=== PATIENT | male | born 1995 | race Caucasian/White ===

== ENCOUNTER 2016-08-15 03:20 | Emergency (ER) | payer BC ==
[~2016-08-15] VITALS: Ht 193 cm; Wt 179.6 kg
[~2016-08-15 03:20] MED LIST: FLUO20CA35 PO; LORA-741 PO
[2016-08-15 03:31] VITALS: TEMP 36.4; Ht 193 cm; Wt 179.6 kg
[2016-08-15] MEDS ORDERED: NORCO 5/325MG HOME PACK PO ONE (05:30)
[2016-08-15] MEDS ORDERED: CLON0.5T3 PO (05:34)
[2016-08-15] MEDS ORDERED: BUSP15TA70 PO (05:34)
[2016-08-15] MEDS ORDERED: PRX/40 PO (05:34)
[2016-08-15] MEDS ORDERED: CHOL1CAP95 PO (05:34)
[2016-08-15] MEDS ORDERED: PARO10TA PO (05:34)
[2016-08-15] MEDS ORDERED: HYDR-5688 PO (05:36)
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
[2016-08-15 06:14] VITALS: BP 148/90; PULSE 105; O2SAT 95
--- NOTE | 2016-08-15 07:50 | DIAGNOSTIC IMAGING REPORT ---
RIGHT ANKLE MIN 3 VIEWS ROUTINE CLINICAL HISTORY: Right ankle pain status post trauma COMPARISON: None DISCUSSION: There is an oblique/spiral fracture of the distal fibula. No tibial fractures are visualized. The ankle mortise appears intact. There is bimalleolar soft tissue swelling. IMPRESSION: Acute distal fibular fracture. The ankle mortise appears intact on these nonstress views. Electronically signed by: Enrike Dumont M.D. 08/15/2016 7:49 AM Dictated Date/Time: 08/15/2016 7:46 AM
[2016-08-20] MEDS ORDERED: HYDR-5688 PO (08:47)
[2016-08-21] MEDS ORDERED: IBUP-103 PO (12:24)
[2016-08-21] MEDS ORDERED: HYDR-5688 PO (15:17)
== END 2016-08-15 06:25 | disposition home or self-care (01) ==
LOC: C.EDB 03:21 → C.EDC 06:25
DX: S82.401A Unspecified fracture of shaft of right fibula, initial encounter for closed fracture (principal); W17.89XA Other fall from one level to another, initial encounter; Y93.39 Activity, other involving climbing, rappelling and jumping off

== ENCOUNTER → 2016-08-19 | Outpatient (CLI) | payer BC ==
[~2016-08-19] MED LIST changes: +BUSP15TA70 PO; +CHOL1CAP95 PO; +CLON0.5T3 PO; -FLUO20CA35 PO; +HYDR-5688 PO; +IBUP-103 PO; -LORA-741 PO; +PARO10TA PO; +PRX/40 PO
[2016-08-19 13:24] LABS: BASO % 0.5 %; BASO ABS # 0.04 K/uL (0-0.2); COMPLETE YES; EOS % 4.5 %; HEMATOCRIT 43.3 % (42-52); IG% 0.1 %; LYMPH % 24.5 %; LYMPH ABS # 2.02 K/uL (1.2-3.4); MEAN CELL VOLUME 87.5 fL (80-100); MEAN CORPUSCULAR HEMOGLOBIN 29.7 pg (25-34); MEAN CORPUSCULAR HGB CONC 33.9 g/dl (32-36); MEAN PLATELET VOLUME 10.9 fL (7.4-10.4); MONO % 9.8 %; NEUT % 60.6 %; PLATELET COUNT 256 K/uL (130-400); RED BLOOD COUNT 4.95 M/uL (4.7-6.1); WHITE BLOOD COUNT 8.24 K/uL (4.8-10.8)
[2016-08-19 13:46] LABS: BLOOD UREA NITROGEN 7 mg/dl (7-18); BUN/CREATININE RATIO 7.5 (10-20); CARBON DIOXIDE 30 mmol/L (21-32); CHLORIDE 103 mmol/L (98-107); CREATININE 0.97 mg/dl (0.60-1.40); GLUCOSE 89 mg/dl (70-99); POTASSIUM 3.6 mmol/L (3.5-5.1); SODIUM 140 mmol/L (136-145)
== END | disposition home or self-care (01) ==
LOC: C.LABBC 10:10
PROVIDERS: ATTEND Orthopaedic Surgery
DX: S82.61XA Displaced fracture of lateral malleolus of right fibula, initial encounter for closed fracture (principal); X58.XXXA Exposure to other specified factors, initial encounter

== ENCOUNTER → 2016-08-21 | Day surgery (SDC) | payer BC ==
[2016-08-20 08:47] VITALS: BMI 45.0
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
[~2016-08-21] VITALS: Ht 195.6 cm; Wt 172.7 kg
[~2016-08-21] MED LIST changes: +ACETAMINOPHEN 500 MG TAB PO SCH; +ATROPINE SULFATE 0.1 MG/ML 5ML SYR IV PRN; +BACITRACIN 50000 UNIT VIAL ONE; +BUPIVACAINE/EPINEPHRINE 0.5% MPF 1:200,000 30 ML VIAL ONE; +CEFAZOLIN 3000 MG/65 ML D5W 65 ML IV SCH; +DEXAMETHASONE SOD INJ 4 MG/ML VIAL ONE; +FENTANYL CITRATE INJ 50 MCG/1 ML 2 ML VIAL ONE; +GLYCOPYRROLATE INJ 0.2 MG/ML VIAL ONE; +HYDROCODONE/ACETAMOPHEN 5/325MG TAB PO PRN; +HYDROmorphone INJ 2 MG/ML SYR/VIAL IV PRN; +HYDROmorphone INJ 2 MG/ML SYR/VIAL ONE; +KETOROLAC TROMETHAMINE 30 MG/ML VIAL IV. PRN; +KETOROLAC TROMETHAMINE 30 MG/ML VIAL ONE; +LACTATED RINGER'S 1000ML IV SCH; +LIDOCAINE HCL 2% 2 ML VIAL (20MG/ML) ONE; +MIDAZOLAM HCL 1 MG/ML 2ML VIAL ONE; +NEOSTIGMINE METHYLSULFATE 5 MG/5 ML SYR ONE; +ONDANSETRON INJ 2 MG/ML 2 ML VIAL IV PRN; +ONDANSETRON INJ 2 MG/ML 2 ML VIAL ONE; +PROMETHAZINE HCL INJ 12.5 MG in SODIUM CHLORIDE 0.9% 50ML 50 ML IV PRN; +PROPOFOL IV EMULSION 10 MG/ML 20 ML VIAL IV ONE; +ROCURONIUM BROMIDE 10 MG/ML 5 ML VIAL ONE; +ROPIVACAINE 0.5% 5 MG/ML 30 ML VIAL ONE; +SODIUM CHLORIDE 0.9% 1000ML 1,000 ML IV SCH
--- NOTE | 2016-08-21 12:04 | History & Physical Bridge Note ---
H&P Re-Evaluation Bridge Note: I have examined the patient, reviewed the History & Physical and in the interval since the performance of the History & Physical I have noted the following changes of clinical significance: No changes noted
[2016-08-21 12:26] VITALS: BP 162/95; PULSE 93; TEMP 36.7; O2SAT 97; Ht 195.6 cm; Wt 172.7 kg
--- NOTE | 2016-08-21 15:08 | DIAGNOSTIC IMAGING REPORT ---
INTRAOPERATIVE RIGHT ANKLE 4 VIEWS CLINICAL HISTORY: Distal fibular fracture. COMPARISON STUDY: 08/15/2016 FINDINGS: 4 intraoperative fluoroscopic spot images are provided for interpretation. 15 seconds of fluoroscopic time was utilized. There is been internal fixation of the distal fibular fracture with a lateral metallic plate fixated with 8 screws. There is additional orthogonal screw traversing the fracture. Appears near-anatomic on the provided images. The ankle mortise appears intact. IMPRESSION: Interval internal fixation of the previously identified distal fibular fracture Electronically signed by: Enrike Dumont M.D. 08/21/2016 3:07 PM Dictated Date/Time: 08/21/2016 3:06 PM
--- NOTE | 2016-08-21 15:19 | Discharge Instructions ---
Discharge Instructions Admission Reason for Admission: Closed Fracture of Right Lateral Malleolus Discharge Discharge Diagnosis / Problem: SAME ABOVE Discharge Goals Goal(s): Decrease discomfort, Improve function Activity Recommendations Activity Limitations: as noted below Lifting Limitations: until after follow-up appointment Exercise/Sports Limitations: until after follow-up appointment Shower/Bathe: keep incision dry Driving or Machine Use: Weightbearing Status: Right non-weightbearing . Instructions / Follow-Up Instructions / Follow-Up MEDICATIONS: * Resume previous medications unless instructed otherwise by your surgeon. * Always take pain medication on a full stomach or with food to avoid upset stomach. * Do not drink alcohol or drive while taking narcotics. * Ibuprofen or Tylenol may be taken if narcotic not needed. SPECIAL CARE INSTRUCTIONS: __ None _X_ Keep extremity elevated and iced x 48 hours; apply ice 20-30 minutes 8-10 times/day. May remove at night. _X_ Crutches __ May discard when able __ Brace/Post-op shoe __ 24 hrs/day __ Remove at night _X_ Dressing _X_ Maintain until seen in office, may shower with plastic over site __ Remove dressings in 24-48 hours and then may shower __ Cover incisions with band-aids after showering __ Do not remove steri-strips Call physician if chills or temperature rises above 102 degrees or pain unrelieved by prescribed pain medications. Office [phone] Current Hospital Diet Patient's current hospital diet: Discharge Diet Recommended Diet: Regular Diet Fluid Restriction: None Procedures Procedures Performed: Right Distal Fibula Fracture Open Reduction Internal Fixation Pending Studies Studies pending at discharge: no Work Instructions Return To Work: after follow-up School Instructions Return To School: after follow-up Medical Emergencies . Who to Call and When: Medical Emergencies: If at any time you feel your situation is an emergency, please call 911 immediately. . Non-Emergent Contact Non-Emergency issues call your: Primary Care Provider Call Non-Emergent contact if: you have a fever, temperature is above 101.5 . "Provider Documentation" section prepared by Paul Natarajan. VTE Core Measure Inpt VTE Proph given/why not?: Treatment not indicated
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
--- NOTE | 2016-08-21 15:55 | [facility] Post Operative Brief Note ---
Immediate Operative Summary Operative Date Aug 21, 2016. Pre-Operative Diagnosis Right distal Fibula Fracture Post-Operative Diagnosis Right distal Fibula Fracture Procedure(s) Performed Right Distal Fibula Fracture Open Reduction Internal Fixation Surgeon Dr. Brody Morin Vision Specialist Surgeon(s) Paul Natarajan PA-C Estimated Blood Loss 50ML Findings as above Specimens none per surgeon Dr. Brody Morin Complication(s) None Disposition Recovery Room / PACU
--- NOTE | 2016-08-21 15:55 | Anesthesiology Progress Note ---
Anesthesia Post Op Note Date & Time Aug 21, 2016 at 15:55 Vital Signs Pain Intensity: 0 Vital Signs Past 12 Hours Date Time Temp Pulse Resp B/P Pulse Ox O2 Delivery O2 Flow Rate FiO2 08/21/16 15:19 36.5 85 16 142/65 96 Mask 10 08/21/16 12:26 36.7 93 20 162/95 97 Room Air Notes Mental Status: alert / awake / arousable, participated in evaluation Pt Amnestic to Procedure: Yes Nausea / Vomiting: adequately controlled Pain: adequately controlled Airway Patency, RR, SpO2: stable & adequate BP & HR: stable & adequate Hydration State: stable & adequate Anesthetic Complications: no major complications apparent
[2016-08-21 16:10] VITALS: BP 121/58; PULSE 86; TEMP 36.9; O2SAT 91
[2016-08-21 16:44] VITALS: BP 127/65; PULSE 82; O2SAT 93
[2016-08-21 17:09] VITALS: BP 120/56; PULSE 83; TEMP 36.7; O2SAT 96
== END | disposition home or self-care (01) ==
LOC: C.ACU 11:50
PROVIDERS: ATTEND Orthopaedic Surgery
DX: S82.401A Unspecified fracture of shaft of right fibula, initial encounter for closed fracture (principal); W13.8XXA Fall from, out of or through other building or structure, initial encounter; I10 Essential (primary) hypertension; F41.9 Anxiety disorder, unspecified; Z98.890 Other specified postprocedural states; Y93.89 Activity, other specified; Y92.89 Other specified places as the place of occurrence of the external cause; Y99.8 Other external cause status

== ENCOUNTER → 2016-12-17 | Outpatient (CLI) | payer BC ==
[~2016-12-17] MED LIST changes: -ACETAMINOPHEN 500 MG TAB PO SCH; -ATROPINE SULFATE 0.1 MG/ML 5ML SYR IV PRN; -BACITRACIN 50000 UNIT VIAL ONE; -BUPIVACAINE/EPINEPHRINE 0.5% MPF 1:200,000 30 ML VIAL ONE; -CEFAZOLIN 3000 MG/65 ML D5W 65 ML IV SCH; -DEXAMETHASONE SOD INJ 4 MG/ML VIAL ONE; -FENTANYL CITRATE INJ 50 MCG/1 ML 2 ML VIAL ONE; -GLYCOPYRROLATE INJ 0.2 MG/ML VIAL ONE; -HYDROCODONE/ACETAMOPHEN 5/325MG TAB PO PRN; -HYDROmorphone INJ 2 MG/ML SYR/VIAL IV PRN; -HYDROmorphone INJ 2 MG/ML SYR/VIAL ONE; -KETOROLAC TROMETHAMINE 30 MG/ML VIAL IV. PRN; -KETOROLAC TROMETHAMINE 30 MG/ML VIAL ONE; -LACTATED RINGER'S 1000ML IV SCH; -LIDOCAINE HCL 2% 2 ML VIAL (20MG/ML) ONE; -MIDAZOLAM HCL 1 MG/ML 2ML VIAL ONE; -NEOSTIGMINE METHYLSULFATE 5 MG/5 ML SYR ONE; -ONDANSETRON INJ 2 MG/ML 2 ML VIAL IV PRN; -ONDANSETRON INJ 2 MG/ML 2 ML VIAL ONE; -PROMETHAZINE HCL INJ 12.5 MG in SODIUM CHLORIDE 0.9% 50ML 50 ML IV PRN; -PROPOFOL IV EMULSION 10 MG/ML 20 ML VIAL IV ONE; -ROCURONIUM BROMIDE 10 MG/ML 5 ML VIAL ONE; -ROPIVACAINE 0.5% 5 MG/ML 30 ML VIAL ONE; -SODIUM CHLORIDE 0.9% 1000ML 1,000 ML IV SCH
[2016-12-17 16:47] LABS: BASO % 0.5 %; BASO ABS # 0.04 K/uL (0-0.2); COMPLETE YES; EOS % 4.7 %; HEMATOCRIT 47.5 % (42-52); IG% 0.3 %; LYMPH % 25.9 %; LYMPH ABS # 1.91 K/uL (1.2-3.4); MEAN CELL VOLUME 86.5 fL (80-100); MEAN CORPUSCULAR HGB CONC 33.5 g/dl (32-36); MEAN PLATELET VOLUME 11.1 fL (7.4-10.4); MONO % 7.6 %; PLATELET COUNT 214 K/uL (130-400); RED BLOOD COUNT 5.49 M/uL (4.7-6.1); WHITE BLOOD COUNT 7.37 K/uL (4.8-10.8)
[2016-12-17 17:22] LABS: URINE APPEARANCE CLEAR (CLEAR); URINE BILIRUBIN NEG (NEG); URINE COLOR DK YELLOW; URINE EPITHELIAL CELL AUTO 0-5 /lpf (0-5); URINE NITRITE NEG (NEG); URINE PH 5.5 (4.5-7.5); URINE SPECIFIC GRAVITY 1.027 (1.000-1.030); UROBILINOGEN NEG (NEG); ZZUR CULT IF INDIC CLEAN CATCH NO
[2016-12-17 17:23] LABS: MANUAL MICROSCOPIC REQUIRED? NO; REVIEW REQ? NO
[2016-12-17 18:24] LABS: ALT/SGPT 83 U/L (12-78); BLOOD UREA NITROGEN 12 mg/dl (7-18); BUN/CREATININE RATIO 12.4 (10-20); CALCIUM 9.5 mg/dl (8.5-10.1); CARBON DIOXIDE 25 mmol/L (21-32); CHLORIDE 104 mmol/L (98-107); CHOLESTEROL 218 mg/dl (0-200); CREATININE 0.95 mg/dl (0.60-1.40); GLUCOSE 93 mg/dl (70-99); POTASSIUM 3.5 mmol/L (3.5-5.1); SODIUM 138 mmol/L (136-145); TRIGLYCERIDES 397 mg/dl (0-150); VERY LOW DENSITY LIPOPROT CALC 79 mg/dl
[2016-12-17 18:34] LABS: ALB/GLOB RATIO 0.9 (0.9-2); ALKALINE PHOSPHATASE 96 U/L (45-117); AST/SGOT 42 U/L (15-37); CHOLESTEROL/HDL RATIO 7.3; HDL CHOLESTEROL 30 mg/dl; LDL CHOLESTEROL CALCULATED 109 mg/dl
== END | disposition home or self-care (01) ==
LOC: C.LAB1850 15:47
PROVIDERS: ATTEND Internal Medicine
DX: I10 Essential (primary) hypertension (principal); E55.9 Vitamin D deficiency, unspecified; R07.89 Other chest pain; E78.5 Hyperlipidemia, unspecified

== ENCOUNTER → 2016-12-25 | Outpatient (CLI) | payer BC ==
--- NOTE | 2016-12-25 08:49 | DIAGNOSTIC IMAGING REPORT ---
(LIVER) ABDOMEN LIMITED CLINICAL HISTORY: 21 years-old Male presenting with Elevated liver function tests. TECHNIQUE: Real-time grayscale and limited color Doppler ultrasound imaging of the abdomen limited to the right upper quadrant was performed. COMPARISON: None. FINDINGS: Liver: Enlarged measuring 21.5 cm in maximal sagittal dimension. The liver is increased in echogenicity relative to the right kidney, although the right hemidiaphragm remains visible. This likely indicates mild steatosis. Biliary: No intrahepatic biliary ductal dilatation. Common bile duct measures up to 6 mm in diameter. Gallbladder: 1.7 cm hyperechoic shadowing, mobile gallstone noted in the gallbladder near the neck. No gallbladder distention or gallbladder wall thickening to suggest cholecystitis. Pancreas: Visualized portions of the pancreatic head and body normal. Kidneys: Right kidney normal in appearance. No hydronephrosis. Abdominal vasculature: Visualized portions of the IVC and abdominal aorta normal. Ascites: None. IMPRESSION: 1. Hepatomegaly with possible mild steatosis. 2. Cholelithiasis without evidence of cholecystitis. Electronically signed by: Efrain Roman 12/25/2016 8:48 AM Dictated Date/Time: 12/25/2016 8:44 AM
== END | disposition home or self-care (01) ==
LOC: C.ULTR 07:56
PROVIDERS: ATTEND Internal Medicine
DX: R94.5 Abnormal results of liver function studies (principal); K80.20 Calculus of gallbladder without cholecystitis without obstruction; R16.0 Hepatomegaly, not elsewhere classified

== ENCOUNTER 2017-05-07 21:19 | Emergency (ER) | payer BC ==
[~2017-05-07] VITALS: Ht 193 cm; Wt 156.0 kg
[2017-05-07 21:26] VITALS: TEMP 36.9; Ht 193 cm; Wt 156.0 kg
[2017-05-07] MEDS ORDERED: METO-217 PO (21:45)
[2017-05-07] MEDS ORDERED: LORAZEPAM 2 MG/ML 1 ML VIAL IV STA (21:52)
--- NOTE | 2017-05-07 22:27 | DIAGNOSTIC IMAGING REPORT ---
CHEST ONE VIEW PORTABLE CLINICAL HISTORY: Chest pain. COMPARISON STUDY: Chest radiograph May 05, 2014. FINDINGS: Lung volumes are normal. No pneumothorax or pleural effusion is present. Pulmonary vascularity is normal. Lungs are clear. Cardiomediastinal silhouette is normal. IMPRESSION: No acute cardiopulmonary findings. Electronically signed by: Yong Farley M.D. 05/07/2017 10:25 PM Dictated Date/Time: 05/07/2017 10:24 PM
[2017-05-07 23:03] LABS: BASO % 0.3 %; BASO ABS # 0.03 K/uL (0-0.2); COMPLETE YES; EOS % 2.6 %; HEMATOCRIT 44.8 % (42-52); IG% 0.3 %; LYMPH % 16.4 %; LYMPH ABS # 1.46 K/uL (1.2-3.4); MEAN CELL VOLUME 85.5 fL (80-100); MEAN CORPUSCULAR HEMOGLOBIN 30.5 pg (25-34); MEAN CORPUSCULAR HGB CONC 35.7 g/dl (32-36); MEAN PLATELET VOLUME 11.3 fL (7.4-10.4); MONO % 5.6 %; NEUT % 74.8 %; PLATELET COUNT 225 K/uL (130-400); RED BLOOD COUNT 5.24 M/uL (4.7-6.1); WHITE BLOOD COUNT 8.89 K/uL (4.8-10.8)
[2017-05-07 23:41] LABS: BUN/CREATININE RATIO 10.5 (10-20); CALCIUM 9.6 mg/dl (8.5-10.1); POTASSIUM 3.7 mmol/L (3.5-5.1)
[2017-05-08 00:53] VITALS: BP 136/82; PULSE 80; O2SAT 98
--- NOTE | 2017-05-08 01:00 | EMERGENCY ROOM VISIT NOTE ---
History First contact with patient: 21:42 Chief Complaint: HYPERTENSION Stated Complaint: HIGH BP 129/102 History of Present Illness The patient is a 21 year old male who presents to the Emergency Room with complaints of feeling anxious with elevated blood pressure with chest pains and arm pains. Patient states he suffers from severe anxiety. Patient states for the past several years has been having ongoing chest pains and arm pains with cramping. Patient sees a psychiatrist and is currently being weaned off Paxil. Patient states today he got nervous as he thought his blood pressure was high and checked it and it was 130/100. She became more anxious and this prompted him to come to the ER. He took two of his clonazepam's. Patient stopped his metoprolol on his own as he thought he did not need this anymore 2 weeks ago. Patient states since then he has been more stressed over this. Patient denies exertional chest pain, dyspnea, abdominal pain, fevers, diaphoresis, leg pain or swelling. Patient had a stress test and echo by Dr. Zuñiga that was unremarkable. Review of Systems See HPI for pertinent positives & negatives. A total of 10 systems reviewed and were otherwise negative. Past Medical/Surgical History Hypertension, anxiety Family History No significant family history Social History Smoking Status: Never Smoker Drug Use: none Marital Status: single Housing Status: lives with family Current/Historical Medications Scheduled Cholecalciferol (Vitamin D3), 50,000 UNIT PO WK Metoprolol Succinate (Toprol Xl), 50 MG PO DAILY Scheduled PRN Clonazepam (Klonopin), 1-2 TABS PO TID PRN for Anxiety Physical Exam Vital Signs Date Time Temp Pulse Resp B/P (MAP) Pulse Ox O2 Delivery O2 Flow Rate FiO2 05/07/17 23:45 81 20 98 Room Air 05/07/17 23:30 82 22 05/07/17 23:01 137/96 05/07/17 23:00 81 20 05/07/17 22:38 80 18 158/90 05/07/17 22:27 Room Air 05/07/17 22:11 86 05/07/17 21:26 36.9 88 18 186/96 95 Room Air Physical Exam VITALS: Vitals are noted on the nurse's note and reviewed by myself. Vital signs hypertensive GENERAL: Pleasant anxious-appearing gentleman, in no acute distress, nondiaphoretic, well-developed well-nourished. SKIN: The skin was without rashes, erythema, edema, or bruising. There is no tenting of the skin. Capillary reflex less than 2 seconds. HEAD: Normocephalic atraumatic. EARS: External auditory canals clear, tympanic membranes pearly pope without erythema or effusion bilaterally. EYES: Pupils equal round and reactive to light and accommodation. Conjunctivae without injection, sclerae without icterus. Extraocular movements intact. NOSE: Patent, turbinates without inflammation or discharge. MOUTH: Mucous membranes moist. Pharynx without erythema or exudate. Uvula midline. Airway patent. Tongue does not deviate. NECK: Supple without nuchal rigidity. No lymphadenopathy. No thyromegaly. Cervical spine is nontender. No JVD. HEART: Regular rate and rhythm without murmurs gallops or rubs. LUNGS: Clear to auscultation bilaterally without wheezes, rales or rhonchi. No dullness to percussion. No retractions or accessory muscle use. ABDOMEN: Positive bowel sounds x 4. Normal tympanic percussion. Soft, nontender, without masses or organomegaly. Jolly sign negative. No guarding or rebound tenderness. MUSCULOSKELETAL: No muscle atrophy, erythema, or edema noted. NEURO: Patient was alert and oriented to person place and time. Normal sensation to light and sharp touch. No focal neurological deficits. Medical Decision & Procedures Laboratory Results 05/07/17 22:20 Red Blood Count 5.24, Mean Corpuscular Volume 85.5, Mean Corpuscular Hemoglobin 30.5, Mean Corpuscular Hemoglobin Concent 35.7, Mean Platelet Volume 11.3, Neutrophils (%) (Auto) 74.8, Lymphocytes (%) (Auto) 16.4, Monocytes (%) (Auto) 5.6, Eosinophils (%) (Auto) 2.6, Basophils (%) (Auto) 0.3, Neutrophils # (Auto) 6.64, Lymphocytes # (Auto) 1.46, Monocytes # (Auto) 0.50, Eosinophils # (Auto) 0.23, Basophils # (Auto) 0.03 05/07/17 22:20 Test 05/07/17 22:20 05/08/17 00:23 White Blood Count 8.89 K/uL (4.8-10.8) Red Blood Count 5.24 M/uL (4.7-6.1) Hemoglobin 16.0 g/dL (14.0-18.0) Hematocrit 44.8 % (42-52) Mean Corpuscular Volume 85.5 fL (80-100) Mean Corpuscular Hemoglobin 30.5 pg (25-34) Mean Corpuscular Hemoglobin Concent 35.7 g/dl (32-36) Platelet Count 225 K/uL (130-400) Mean Platelet Volume 11.3 fL (7.4-10.4) Neutrophils (%) (Auto) 74.8 % Lymphocytes (%) (Auto) 16.4 % Monocytes (%) (Auto) 5.6 % Eosinophils (%) (Auto) 2.6 % Basophils (%) (Auto) 0.3 % Neutrophils # (Auto) 6.64 K/uL (1.4-6.5) Lymphocytes # (Auto) 1.46 K/uL (1.2-3.4) Monocytes # (Auto) 0.50 K/uL (0.11-0.59) Eosinophils # (Auto) 0.23 K/uL (0-0.5) Basophils # (Auto) 0.03 K/uL (0-0.2) RDW Standard Deviation 39.5 fL (36.4-46.3) RDW Coefficient of Variation 12.7 % (11.5-14.5) Immature Granulocyte % (Auto) 0.3 % Immature Granulocyte # (Auto) 0.03 K/uL (0.00-0.02) Anion Gap 8.0 mmol/L (3-11) Est Creatinine Clear Calc Drug Dose 189.2 ml/min Estimated GFR () 124.1 Estimated GFR (Non- 107.1 BUN/Creatinine Ratio 10.5 (10-20) Calcium Level 9.6 mg/dl (8.5-10.1) Total Bilirubin 0.6 mg/dl (0.2-1) Direct Bilirubin 0.1 mg/dl (0-0.2) Aspartate Amino Transf (AST/SGOT) 20 U/L (15-37) Alanine Aminotransferase (ALT/SGPT) 34 U/L (12-78) Alkaline Phosphatase 80 U/L (45-117) Total Protein 8.3 gm/dl (6.4-8.2) Albumin 4.0 gm/dl (3.4-5.0) Lipase 132 U/L (73-393) Bedside Troponin I < 0.030 ng/ml (0-0.045) Medications Administered Medications (Trade) Dose Ordered Sig/Skinny Route Start Time Stop Time Status Last Admin Dose Admin Lorazepam (Ativan Inj) 1 mg NOW STAT IV 05/07/17 21:52 05/07/17 21:58 DC 05/07/17 22:33 1 MG ED Course Prior records/ancillary studies reviewed. Triage Nursing notes reviewed. Additional history obtained from family. The patient's history was concerning for chest pain with feeling anxious and elevated blood pressure. Differential diagnosis: Etiologies such as anxiety, cardiac ischemia, aortic dissection, pulmonary embolism, pneumonia, pneumothorax, musculoskeletal, infections, pericarditis, myocarditis, esophageal rupture, gastrointestinal, as well as others were entertained. Physical examination: As above. ER treatment provided: Ativan On reassessment the patient felt better. Diagnostic interpretation by me: The electrocardiogram was negative for pathologic change. Normal sinus, normal axis, incomplete rebound or branch block, rate is 76. Impression incomplete right bundle branch block interpreted by myself The labs revealed negative troponin 2 that is greater than 2 hours apart Imaging studies: Chest x-ray as above Exam and history seem consistent with elevated blood pressure from anxiety and stopping his metoprolol. Patient has a history of anxiety and states that with his anxiety he gets chest pains and arm pains. Patient states this is unchanged for him. He was mainly concerned about his blood pressure. Patient was advised to restart his blood pressure medication and to take his clonazepam as needed for anxiety. He was advised to follow back up with his psychiatrist, therapist and family care doctor this week or here in the ER sooner for worsening signs or symptoms or as needed. Patient had unremarkable workup as above. He is well-appearing. His blood pressure came down after being medicated with Ativan. By the evaluation outlined above emergent etiologies such as cardiac ischemia, aortic dissection, pulmonary embolism, pneumonia, pneumothorax, infections, pericarditis, myocarditis, gastrointestinal, as well as others were deemed relatively unlikely. The pt informed about the findings as listed above. All questions were answered and pleased with the treatment. Return instructions were outlined and the patient was discharged in stable condition. Case reviewed with my attending Referral: The patient was referred back to primary care physician for follow-up in 2 to 3 days for a recheck of the current condition. Medical Decision As above Medication Reconcilliation Current Medication List: was personally reviewed by me Blood Pressure Screening Patient's blood pressure: Elevated blood pressure Blood pressure disposition: Elevated BP felt to be situational, Referred to PCP Impression Primary Impression: High blood pressure Additional Impression: Anxiety Departure Information Dispostion Home / Self-Care Condition GOOD Referrals Trino Truong M.D. (PCP) Forms WORK / SCHOOL INSTRUCTIONS, HOME CARE DOCUMENTATION FORM, IMPORTANT VISIT INFORMATION Patient Instructions Anxiety Body Response, My [facility] [employer] Additional Instructions Restart your metoprolol as directed by your family care doctor. Use your clonazepam as needed. Rest and drink plenty of fluids as tolerated. Continue current medications. Return to the ER immediately for worsening or persistent blood pressure problems , abdominal pain, vomiting, fevers, chest pains, difficulty breathing, worsening of your condition, or as needed. Follow up with your primary physician in 2-3 days for a recheck of your current condition. Problem Qualifiers Primary Impression: High blood pressure Hypertension type: unspecified Qualified Codes: I10 - Essential (primary) hypertension
== END 2017-05-08 00:54 | disposition home or self-care (01) ==
LOC: C.EDB 21:20
DX: F41.9 Anxiety disorder, unspecified (principal); R03.0 Elevated blood-pressure reading, without diagnosis of hypertension; I10 Essential (primary) hypertension; Z79.899 Other long term (current) drug therapy

== ENCOUNTER → 2017-10-28 | Outpatient (CLI) | payer OTHER ==
[~2017-10-28] MED LIST changes: -BUSP15TA70 PO; -HYDR-5688 PO; -IBUP-103 PO; +METO-217 PO; -PARO10TA PO; -PRX/40 PO
--- NOTE | 2017-10-28 15:52 | DIAGNOSTIC IMAGING REPORT ---
L SHOULDER MIN 2 VIEWS ROUTINE HISTORY: 22 years-old Male M25.512 Shoulder pain, [id number] chronic left shoulder pain with history of remote trauma COMPARISON: Chest radiographs 10/28/2017 TECHNIQUE: 3 views of the left shoulder FINDINGS: There is no acute fracture, dislocation or significant degenerative changes. Soft tissues are unremarkable without opaque foreign body. Imaged lung oleary appear clear. IMPRESSION: No acute fracture or dislocation. The above report was generated using voice recognition software. It may contain grammatical, syntax or spelling errors. Electronically signed by: Saleem Herrera M.D. 10/28/2017 3:51 PM Dictated Date/Time: 10/28/2017 3:49 PM
--- NOTE | 2017-10-28 15:54 | DIAGNOSTIC IMAGING REPORT ---
THORACIC SPINE 3 VIEWS ROUTINE HISTORY: 22 years-old Male M54.9 Back [id number] chronic mid back pain with history of remote trauma COMPARISON: Chest radiographs of same day TECHNIQUE: 3 views of the thoracic spine FINDINGS: There is only minimal endplate spurring without acute fracture, subluxation or significant degenerative changes. Imaged lung oleary are clear. No opaque foreign body. IMPRESSION: No acute fracture or subluxation. The above report was generated using voice recognition software. It may contain grammatical, syntax or spelling errors. Electronically signed by: Saleem Herrera M.D. 10/28/2017 3:53 PM Dictated Date/Time: 10/28/2017 3:51 PM
--- NOTE | 2017-10-28 15:55 | DIAGNOSTIC IMAGING REPORT ---
C-SPINE ROUTINE 4 OR 5 VIEWS HISTORY: 22 years-old Male M54.9 Back [id number] chronic neck pain with history of remote trauma COMPARISON: Thoracic spine radiographs of same day TECHNIQUE: 5 views of the cervical spine FINDINGS: The seventh vertebral segment is partially obscured by the patient's shoulder. There is slight reversal of the normal lordotic curvature centered at C3-C4. There is no acute fracture, subluxation or significant degenerative changes. No prevertebral soft tissue swelling. Bony neuroforamina appear generally patent. Imaged lung apices appear clear. IMPRESSION: No acute fracture, subluxation or significant degenerative changes. The above report was generated using voice recognition software. It may contain grammatical, syntax or spelling errors. Electronically signed by: Saleem Herrera M.D. 10/28/2017 3:54 PM Dictated Date/Time: 10/28/2017 3:53 PM
--- NOTE | 2017-10-28 15:58 | DIAGNOSTIC IMAGING REPORT ---
CHEST 2 VIEWS ROUTINE CLINICAL HISTORY: R07.89 Atypical chest [id number] dyspnea COMPARISON STUDY: 05/07/2017 FINDINGS: The bones soft tissues and hemidiaphragms are normal. The cardiomediastinal silhouette is normal. The lungs are clear. The pulmonary vasculature is normal. IMPRESSION: Negative chest. The above report was generated using voice recognition software. It may contain grammatical, syntax or spelling errors. Electronically signed by: Sanket Díaz M.D. 10/28/2017 3:57 PM Dictated Date/Time: 10/28/2017 3:56 PM
== END | disposition home or self-care (01) ==
LOC: C.RAD1850 15:22
PROVIDERS: ATTEND Physician Assistant Medical
DX: M54.9 Dorsalgia, unspecified (principal); M25.512 Pain in left shoulder; R07.89 Other chest pain